=== PATIENT | male | born 1975 | race African-American/Black ===

== ENCOUNTER 2016-10-19 17:54 | Emergency (ER) | payer OTHER ==
[2016-10-19 18:02] VITALS: BP 107/76; PULSE 85; TEMP 98.5; BMI 20.3
--- NOTE | 2016-10-19 18:03 | PDOC ---
Rapid Medical Evaluation Chief Complaint: Injury Time Seen by Provider: 10/19/16 18:02 Medical Evaluation: Allergies Allergy/AdvReac Type Severity Reaction Status Date / Time No Known Allergies Allergy Verified 10/19/16 17:56 Vital Signs Temp Pulse Resp BP Pulse Ox 98.5 F 85 18 107/76 100 10/19/16 17:58 10/19/16 17:58 10/19/16 17:58 10/19/16 17:58 10/19/16 17:58 10/19/16 18:02 I have performed a brief in-person evaluation of this patient. The patient presents with a chief complaint of: left hip/shoulder pain s/p fall this am Pertinent physical exam findings: Left shoulder Decreased R.O.M./pain..Neg obvious deformities Left hip pain on palp/Pt able to ambulate but insists something is wrong with his hip The patient will proceed to the ED for further evaluation. XRays; left shoulder left hip
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
[2016-10-19] MEDS ORDERED: DIPHTH,PERTUSS(ACELL),TET 0.5 ML DISP.SYRIN IM ONE (18:59)
[2016-10-19] MEDS ORDERED: IBUPROFEN 600 MG TABLET (FP) PO ONE ×2 (18:59→19:02)
== END 2016-10-19 19:18 | disposition home or self-care (01) ==
LOC: JERFT 17:54
PROC: 3E0234Z Introduction of Serum, Toxoid and Vaccine into Muscle, Percutaneous Approach (ICD-10-PCS; principal; 2016-10-19)
DX: S43.402A Unspecified sprain of left shoulder joint, initial encounter (principal); S70.02XA Contusion of left hip, initial encounter; W05.2XXA Fall from non-moving motorized mobility scooter, initial encounter; Y93.89 Activity, other specified; Y92.410 Unspecified street and highway as the place of occurrence of the external cause
CPT/HCPCS: 73030-TC-LT; 73502-TC-LT; 90715; 99281-25

== ENCOUNTER 2021-08-18 08:48 | Emergency (ER) | payer OTHER ==
[2021-08-18 08:56] VITALS: BP 107/73; PULSE 78; TEMP 98; BMI 20.3
[2021-08-18] MEDS ORDERED: IBUPROFEN 600 MG TABLET (FP) PO ONE ×2 (09:51→10:13)
[2021-08-18] MEDS ORDERED: ACETAMINOPHEN 325 MG TABLET (FP) ONE (10:13)
== END 2021-08-18 10:33 | disposition home or self-care (01) ==
LOC: JERFT 08:48 → JER 08:48 → JERFT 10:33
DX: S39.012A Strain of muscle, fascia and tendon of lower back, initial encounter (principal); X50.0XXA Overexertion from strenuous movement or load, initial encounter
CPT/HCPCS: 99283-25